=== PATIENT | female | born 1985 | race Two or more races ===

== ENCOUNTER 2017-04-14 09:26 | Emergency (ER) | payer BC ==
[~2017-04-14] VITALS: Ht 165.1 cm; Wt 60.3 kg
--- NOTE | 2017-04-14 09:38 | NUR ---
PT BIB [facility] WITH [employer] AT BEDSIDE FOR PSYCH EVAL AND POSSIBLE IV DRUG USE. PT IS ALTERED, INCOHERENT, REFUSING TO ANSWER QUESTIONS OR FOLLOW COMMANDS, AND APPEARS UNDER THE INFLUENCE. RESP EVEN UNLABORED. SKIN WARM NONDIAPHORETIC. ABLE TO MOVE ALL EXTREMITIES BUT REFUSING TO DO SO ON COMMAND. PT ASSISTED WITH TRANSFER FROM [facility] TO ER BED. PLACED ON MONITOR IN ER BED 07. MD AT BEDSIDE.
--- NOTE | 2017-04-14 09:45 | NUR ---
PT ON 2POINT BEHAVIORAL RESTRAINTS PER MD. PT HAS SITTER AT BEDSIDE. CUSTOM MOTORCYCLE PAINTER AT BEDSIDE FOR BLOOD DRAW.
[2017-04-14 09:59] LABS: BASOPHILS % (AUTO) 0.5 % (0.0-2.0); EOSINOPHILS # (AUTO) 0.1 /CMM (0.0-0.7); EOSINOPHILS % (AUTO) 1.4 % (0.0-6.0); HEMATOCRIT 35 % (33-45); HEMOGLOBIN 11.6 g/dL (11.5-14.8); LYMPHOCYTES # (AUTO) 1.9 /CMM (0.8-4.8); LYMPHOCYTES % (AUTO) 30.3 % (20.0-44.0); MEAN CORPUSCULAR HEMOGLOBIN 29 PG (26.0-33.0); MEAN CORPUSCULAR HGB CONC 34 g/dl (31.0-36.0); MEAN CORPUSCULAR VOLUME 88 fL (82-100); MONOCYTES # (AUTO) 0.5 /CMM (0.1-1.30); MONOCYTES % (AUTO) 8.3 % (2.0-12.0); NEUTROPHILS # (AUTO) 3.8 /CMM (1.8-8.9); NEUTROPHILS % (AUTO) 59.5 % (43.0-81.0); PLATELET COUNT (AUTO) 316 /CMM (150-450); RDW COEFFICIENT OF VARIATION 13.6 (11.5-15.0); RED BLOOD CELL COUNT(AUTO) 3.93 MIL/uL (4.0-5.2); WHITE BLOOD COUNT (AUTO) 6.4 K/uL (4.3-11.0)
--- NOTE | 2017-04-14 10:07 | NUR ---
PT CONTINUES TO YELL, MOVE IN BED, AND BE AGITATED. ATIVAN GIVEN PER MD.
--- NOTE | 2017-04-14 10:32 | NUR ---
PT REASSESSED BY MD AND RN. RESTING QUIETLY, ASLEEP. 1:1 SITTER AT BEDSIDE. 1 RESTRAINT RELEASED AND [address], TO BE DISCONTINUED IN 15 MINUTES IF PT REMAINS CALM AND COOPERATIVE.
[2017-04-14 10:45] LABS: CARBON DIOXIDE 28 mmol/L (21-32); CHLORIDE 109 mmol/L (98-107); CREATININE 0.7 mg/dL (0.6-1.3); GLUCOSE 93 mg/dL (74-106); POTASSIUM 3.7 mmol/L (3.5-5.1); SODIUM SERUM 145 mmol/L (136-145); UREA NITROGEN, BLOOD 16 mg/dL (7-18)
--- NOTE | 2017-04-14 10:47 | NUR ---
RESTRAINT REMOVED. PT REMAINS ASLEEP AND CALM. 1:1 SITTER AT BEDSIDE.
[2017-04-14 10:53] LABS: ALANINE AMINOTRANSFERASE 38 U/L (12-78); ALBUMIN 3.7 g/dL (3.4-5.0); ALCOHOL, BLOOD < 3 mg/dL (0-0); ALKALINE PHOSPHATASE 99 U/L (46-116); ASPARTATE AMINOTRANSFERASE 18 U/L (15-37); BILIRUBIN,DIRECT 0.1 mg/dL (0.0-0.2); BILIRUBIN,TOTAL 0.6 mg/dL (0.2-1.0); SALICYLATE 0.3 mg/dL (2.8-20.0); TOTAL PROTEIN, SERUM 7.9 g/dL (6.4-8.2)
[2017-04-14 10:54] LABS: ACETAMINOPHEN 0 ug/ml (10-30)
--- NOTE | 2017-04-14 11:07 | NUR ---
PER MD, NO INDICATION FOR IN AND OUT CATH AT THIS TIME.
--- NOTE | 2017-04-14 12:18 | NUR ---
RESTING QUIETLY WITH 1:1 SITTER AT BEDSIDE, NAD NOTED
--- NOTE | 2017-04-14 14:00 | NUR ---
RESTING QUIETLY WITH 1:1 SITTER AT BEDSIDE, ASLEEP BUT AROUSABLE. OFFERED TOILETING AND FOOD.
--- NOTE | 2017-04-14 16:00 | NUR ---
RESTING QUIETLY WITH 1:1 SITTER AT BEDSIDE, ASLEEP BUT AROUSABLE. OFFERED TOILETING.
--- NOTE | 2017-04-14 18:02 | NUR ---
RESTING QUIETLY WITH 1:1 SITTER AT BEDSIDE, ASLEEP BUT AROUSABLE. OFFERED TOILETING.
--- NOTE | 2017-04-14 19:00 | NUR ---
RECIEVED PT FROM [facility]EVIN LEE, PT IS RESTING IN ER BED, NAD NOTED, SKIN WARM AND DRY. PT IS ON COAL SCREENER. SOH SITYBARRA AT BED SIDE. WILL CONTINUE TO MONITOR
--- NOTE | 2017-04-14 20:38 | NUR ---
ASKED PATIENT FOR URINE SMAPLE. PT STATED "I DO NOT WANT TO GIVE YOU A URINE SAMPLE" MD AGUIRRE NOTIFIED
--- NOTE | 2017-04-14 22:23 | NUR ---
Patient discharged to home in stable condition. Written and verbal after care instructions given. Patient verbalizes understanding of instruction.IV removed. Catheter intact and site benign. Pressure and 4x4 applied to site. No bleeding noted. PT ambulatory with a steady gait VITAL SIGNS WITHIN NORMAL LIMITS.
[2017-04-14 22:26] VITALS: BP 103/60
== END 2017-04-14 22:43 | disposition home or self-care (01) ==
LOC: EDBD 09:30 → ER 09:30
DX: Z00.8 Encounter for other general examination (principal); R79.89 Other specified abnormal findings of blood chemistry
CPT/HCPCS: 36415; 80048; 80076; 80329; 84703; 85025; 96372; 96374; 99284; A4606; G0480 ×2; J2060; J3490; Z7610

== ENCOUNTER 2018-03-30 13:50 | Emergency (ER) | payer BC, OTHER ==
[~2018-03-30] VITALS: Ht 162.6 cm; Wt 68.0 kg
[2018-03-30 13:57] VITALS: BP 125/67
--- NOTE | 2018-03-30 14:10 | NUR ---
BIB [employer], PT C/O ABD PAIN. DENIES N/V/D, SOB, DIZZINESS, CP @ THIS TIME. PT SEEN & EVAL'D BY DR. CARMEN. LUCIANA @ BS.
[2018-03-30] MEDS ORDERED: MAG HYDROX/AL HYDROX/SIMETH 30 ML UDC ONE (14:28)
[2018-03-30] MEDS ORDERED: MAG HYDROX/AL HYDROX/SIMETH 30 ML UDC PO ONE (14:30)
[2018-03-30 14:34] LABS: APPEARANCE,URINE Slightly Cloudy (CLEAR); BILIRUBIN,URINE Negative (NEGATIVE); BLOOD, URINE Trace-intact Ery/uL (NEGATIVE); COLOR,URINE Light yellow (YELLOW); KETONES,URINE Negative (NEGATIVE); LEUKOCYTE ESTERASE ,URINE Large (NEGATIVE); NITRITE, URINE Negative (NEGATIVE); PH,URINE 5.5 (5.0-8.0); PROTEIN,URINE Negative (NEGATIVE); UGLUCOSE Negative (NEGATIVE); UROBILINOGEN,URINE 0.2 EU/dL (0.2)
--- NOTE | 2018-03-30 14:42 | NUR ---
Patient discharged to home in stable condition. Written and verbal after care instructions given. Patient verbalizes understanding of instruction.
[2018-03-30 14:43] LABS: BACTERIA,URINE Few /HPF (None Seen); RBC,URINE 0-2 /HPF (0-2); WBC,URINE 21-50 /HPF (0-3)
[2018-03-30 14:44] LABS: SQUAMOUS EPITHELIAL CELL,UR Moderate /HPF (None Seen); TRICHOMONAS,URINE Few /HPF (None Seen)
--- NOTE | 2018-03-30 15:22 | NUR ---
CALLED [facility] POLICE DEPARTMENT SPOKE WITH THE PROCESS TREATER. HE MENTIONED ONCE THE CREW GETS BACK TO STATION, THEY WILL FOLLOW UP ON THE RESULTS FOR THE URINE THEY WILL NEED TO OUTSOLE CEMENTER MACHINE.
--- NOTE | 2018-03-30 18:41 | NUR ---
CALLED [employer] NON EMERGENCY DISPATCH, THEY WILL FOLLOW UP AND GIVE US A CALL BACK.
== END 2018-03-30 14:43 ==
LOC: ER 13:51
DX: N39.0 Urinary tract infection, site not specified (principal)
CPT/HCPCS: 81001; 84703; 87077; 87086; 99284; A4606; Z7610; 81000-TC

== ENCOUNTER 2019-05-30 08:35 | Emergency (ER) | payer OTHER, MEDICAID ==
[~2019-05-30] VITALS: Ht 167.6 cm; Wt 74.8 kg
--- NOTE | 2019-05-30 08:38 | NUR ---
BIB [facility] AND [employer] FOR LOWER ABD PAIN SINCE YESTERDAY, POSSIBILITY OF , -BLEEDING, UNKNOWN LMP. TO ER BED 6, HOOKED TO MONITOR, CHANGED TO HOSPITAL GOWN, PROVIDED W WARM BLANKET, AWAITING MD MCKEON.
--- NOTE | 2019-05-30 08:41 | NUR ---
Note sussyone in EDM - 05/30/19 at 0925 by YOUNG PT BIB AND LUCIANA [employer] OFF[employer]ER [facility] #[id number], BOOKING # [phone] FOR ABD PAIN SINCE YESTERDAY. PT WAS TESTED POSITIVE FOR DURING PENITENTIARY AND CLAIMS TO USE METH RECENTLY. AAOX4. NO SOB. BREATHING EVEN AND UNLABORED.WILL CONTINUE TO MONITOR.
--- NOTE | 2019-05-30 08:48 | NUR ---
DR PADILLA AT BEDSIDE
[2019-05-30] MEDS ORDERED: MAG HYDROX/AL HYDROX/SIMETH 30 ML UDC ONE (08:56)
[2019-05-30] MEDS ORDERED: ACETAMINOPHEN ES 500 MG TABLET ONE (08:56)
[2019-05-30] MEDS ORDERED: IV NS 0.9% 1,000 ML BAG IV ONE (09:00)
[2019-05-30] MEDS ORDERED: ACETAMINOPHEN ES 500 MG TABLET PO ONE (09:00)
[2019-05-30] MEDS ORDERED: MAG HYDROX/AL HYDROX/SIMETH 30 ML UDC PO ONE (09:00)
[2019-05-30 09:01] LABS: BASOPHILS % (AUTO) 0.3 % (0.0-2.0); EOSINOPHILS % (AUTO) 2.7 % (0.0-6.0); HEMATOCRIT 37 % (33-45); HEMOGLOBIN 12.7 g/dL (11.5-14.8); LYMPHOCYTES # (AUTO) 1.1 /CMM (0.8-4.8); LYMPHOCYTES % (AUTO) 12.8 % (20.0-44.0); MEAN CORPUSCULAR HGB CONC 35 g/dl (31.0-36.0); MEAN CORPUSCULAR VOLUME 95 fL (82-100); MONOCYTES # (AUTO) 0.4 /CMM (0.1-1.30); MONOCYTES % (AUTO) 5.4 % (2.0-12.0); NEUTROPHILS # (AUTO) 6.5 /CMM (1.8-8.9); NEUTROPHILS % (AUTO) 78.8 % (43.0-81.0); PLATELET COUNT (AUTO) 206 /CMM (150-450); RED BLOOD CELL COUNT(AUTO) 3.84 MIL/uL (4.0-5.2); WHITE BLOOD COUNT (AUTO) 8.3 K/uL (4.3-11.0)
[2019-05-30 09:06] LABS: APPEARANCE,URINE Slightly Cloudy (CLEAR); BILIRUBIN,URINE Negative (NEGATIVE); BLOOD, URINE Negative Ery/uL (NEGATIVE); COLOR,URINE Yellow (YELLOW); KETONES,URINE Negative (NEGATIVE); LEUKOCYTE ESTERASE ,URINE Small (NEGATIVE); NITRITE, URINE Negative (NEGATIVE); PH,URINE 8.5 (5.0-8.0); PROTEIN,URINE Negative (NEGATIVE); UGLUCOSE Negative (NEGATIVE)
[2019-05-30 09:12] LABS: CALCIUM, SERUM 8.5 mg/dL (8.5-10.1); CREATININE 0.5 mg/dL (0.6-1.3)
--- NOTE | 2019-05-30 09:15 | NUR ---
US TECH AT BEDSIDE
[2019-05-30 09:17] LABS: BACTERIA,URINE Few /HPF (None Seen); SQUAMOUS EPITHELIAL CELL,UR Moderate /HPF (None Seen)
[2019-05-30 09:18] LABS: ALBUMIN 2.8 g/dL (3.4-5.0); BILIRUBIN,TOTAL 0.2 mg/dL (0.2-1.0)
[2019-05-30] MEDS ORDERED: CEPHALEXIN MONOHYDRATE 500 MG CAPSULE PO ONE ×2 (09:30→09:32)
--- NOTE | 2019-05-30 10:56 | NUR ---
Patient in custody of [employer], discharged in stable condition. Written and verbal after care instructions given. Patient and [employer] verbalizes understanding of instruction.
[2019-05-30 10:59] VITALS: BP 101/50
== END 2019-05-30 10:59 ==
LOC: ER 08:37
DX: O23.42 Unspecified infection of urinary tract in pregnancy, second trimester (principal); Z3A.15 15 weeks gestation of pregnancy
CPT/HCPCS: 36415; 76856; 80048; 80076; 81001; 84702; 85025; 86850; 87086; 99284; J7030; 81000-TC

== ENCOUNTER 2024-09-27 21:07 | Emergency (ER) | payer OTHER ==
[~2024-09-27] VITALS: Ht 167.6 cm; Wt 81.6 kg
[2024-09-28] MEDS: IV NS 0.9% 1,000 ML BAG IV ONE (00:42)
[2024-09-28 00:47] LABS: BASOPHILS % (AUTO) 0.2 % (0.0-2.0); EOSINOPHILS # (AUTO) 0.1 K/uL (0.0-0.7); EOSINOPHILS % (AUTO) 0.9 % (0.0-6.0); HEMATOCRIT 41 % (33-45); HEMOGLOBIN 14.4 g/dL (11.5-14.8); LYMPHOCYTES # (AUTO) 0.7 K/uL (0.8-4.8); MEAN CORPUSCULAR HEMOGLOBIN 31 PG (26.0-33.0); MEAN CORPUSCULAR HGB CONC 35 g/dl (31.0-36.0); MEAN CORPUSCULAR VOLUME 89 fL (82-100); MONOCYTES # (AUTO) 0.3 K/uL (0.1-1.30); MONOCYTES % (AUTO) 3.1 % (2.0-12.0); NEUTROPHILS # (AUTO) 9.3 K/uL (1.8-8.9); NEUTROPHILS % (AUTO) 88.8 % (43.0-81.0); PLATELET COUNT (AUTO) 256 K/uL (150-450); RED BLOOD CELL COUNT(AUTO) 4.61 MIL/uL (4.0-5.2); RED CELL DISTRIBUTION WIDTH 12.3 % (11.5-15.0); WHITE BLOOD COUNT (AUTO) 10.5 K/uL (4.3-11.0)
[2024-09-28 01:05] LABS: ALBUMIN 3.8 g/dL (3.4-5.0); BILIRUBIN,TOTAL 0.5 mg/dL (0.2-1.0); CALCIUM, SERUM 8.6 mg/dL (8.5-10.1); CREATININE 0.8 mg/dL (0.6-1.3); POTASSIUM 3.6 mmol/L (3.5-5.1); TOTAL PROTEIN, SERUM 7.2 g/dL (6.4-8.2)
[2024-09-28 01:18] LABS: PREGNANCY TEST URINE QUAL NEGATIVE (NEGATIVE)
[2024-09-28] MEDS ORDERED: CT SWABBABLE VALVE TRANS SET 1 EA INFUS.SET MC ONE (01:18)
[2024-09-28] MEDS ORDERED: IOHEXOL-300 100 ML VIAL IV ONE (01:18)
[2024-09-28] MEDS ORDERED: IV NS 0.9% 250 ML IV ONE (01:18)
[2024-09-28 01:22] LABS: APPEARANCE,URINE SLIGHTLY CLOUDY (CLEAR); BILIRUBIN,URINE NEGATIVE (NEGATIVE); BLOOD, URINE 2+ Ery/uL (NEGATIVE); COLOR,URINE YELLOW (YELLOW); KETONES,URINE NEGATIVE (NEGATIVE); LEUKOCYTE ESTERASE ,URINE TRACE (NEGATIVE); NITRITE, URINE NEGATIVE (NEGATIVE); PROTEIN,URINE NEGATIVE (NEGATIVE); UGLUCOSE NEGATIVE (NEGATIVE); UROBILINOGEN,URINE 0.2 EU/dL (0.2)
[2024-09-28 01:23] LABS: ADD URINE CULTURE YES; BACTERIA,URINE Rare /HPF (None Seen); SQUAMOUS EPITHELIAL CELL,UR Moderate /HPF (None Seen)
[2024-09-28] MEDS ORDERED: SULF1TAB48 PO (03:28)
[2024-09-28] MEDS ORDERED: KETO10TA2 PO (03:28)
[2024-09-28 03:36] VITALS: BP 112/70; TEMP 99.2; O2SAT 98
== END 2024-09-28 03:36 | disposition home or self-care (01) ==
LOC: ER 21:07
DX: N39.0 Urinary tract infection, site not specified (principal); K80.20 Calculus of gallbladder without cholecystitis without obstruction; R10.9 Unspecified abdominal pain
CPT/HCPCS: 99285; 74177; 96360; 85025; 83690; 84703; 81001; 36415; 80053; 84702; J7030; J7050; Q9967